=== PATIENT | male | born 1965 | race Asian ===

== ENCOUNTER → 2024-02-13 12:23 | Outpatient (REF) | payer BC, SELFPAY | LOC: RAD 12:23 | PROVIDERS: ATTENDING PHYSICIAN Otolaryngology; FAMILY PHYSICIAN Internal Medicine | DX: J38.01 Paralysis of vocal cords and larynx, unilateral (principal) | CPT/HCPCS: 70491; 71260; Q9967 ==

== ENCOUNTER → 2024-02-25 08:08 | Outpatient (REF) | payer BC, SELFPAY | LOC: RAD 08:08 | PROVIDERS: ATTENDING PHYSICIAN Otolaryngology; FAMILY PHYSICIAN Internal Medicine | DX: H90.12 Conductive hearing loss, unilateral, left ear, with unrestricted hearing on the contralateral side (principal) | CPT/HCPCS: 70481; Q9967 ==

== ENCOUNTER → 2025-05-26 11:51 | Outpatient (REF) | payer BC, SELFPAY | LOC: HWRAD 11:51 | PROVIDERS: ATTENDING PHYSICIAN Chiropractor; FAMILY PHYSICIAN Internal Medicine | DX: M54.2 Cervicalgia (principal) | CPT/HCPCS: 72050 ==